=== PATIENT | female | born 1945 | race Caucasian/White ===

== ENCOUNTER 2022-06-26 08:06 | Inpatient (IN) | payer MEDICARE, SELFPAY ==
[2022-06-26] VITALS (7 sets, daily range): BP systolic 143–164; BP diastolic 64–72; PULSE 62–76; RESP 16–21; TEMP 36–36.5; O2SAT 95–100; BMI 25.0
--- NOTE | 2022-06-26 | ECHO_ITS ---
Patient Info Name: Ashlee Burk Age: 76 years : 1945 Gender: Female Ht: 67 in Wt: 160 lbs BSA: 1.86 m2 HR: 76 bpm BP: 143 / 72 mmHg Heart Rhythm: Sinus Rhythm Technical Quality: Fair Exam Date: 06/26/2022 3:36 PM Exam Location: [facility] Patient Status: Inpatient Admit Date: 06/26/2022 Staff Ordering Physician: Willis Segovia MD Job Printer Apprentice: Mony Bertrand RDCS Attending Provider: Jane Villar DO Exam Type: CA echo doppler color flow Study Info Indications - MULTIFOCAL CVA Complete two-dimensional, color flow and Doppler transthoracic echocardiogram is performed. Summary 1. Complete two-dimensional, color flow and Doppler transthoracic echocardiogram is performed. 2. Left ventricular chamber dimension is normal. 3. Left ventricular systolic function is normal, estimated at 65-70%. 4. There is moderate asymmetric septal increased left ventricular wall thickness. 5. The left ventricular diastolic function is grade I diastolic dysfunction. 6. There is trace mitral valve regurgitation. 7. There is no aortic valve stenosis. 8. There is mild tricuspid valve regurgitation. 9. No pulmonary hypertension, estimated pulmonary arterial systolic pressure is 26 mmHg. 10. Consider bubble study to assess for intracardiac shunt at the atrial level with and without Valsalva.]. Recommendations * Consider bubble study to assess for intracardiac shunt at the atrial level with and without Valsalva.]. Left Ventricle Left ventricular chamber dimension is normal. Left ventricular systolic function is normal, estimated at 65-70%. There is moderate asymmetric septal increased left ventricular wall thickness. The left ventricular diastolic function is grade I diastolic dysfunction. Right Ventricle Right ventricular chamber dimension is normal. Right ventricular systolic function is normal. Left Atria Left atrial chamber dimension is mildly enlarged. Right Atria Right atrial chamber dimension is normal. Aortic Valve The aortic valve is trileaflet. There is no aortic valve stenosis. There is trace aortic valve regurgitation. Pulmonic Valve The pulmonic valve is not well visualized. There is trace pulmonic regurgitation. Mitral Valve The mitral valve has thickened leaflets. There is trace mitral valve regurgitation. The mitral valve annulus is severely calcified. Tricuspid Valve The tricuspid valve leaflets are normal. There is mild tricuspid valve regurgitation. No pulmonary hypertension, estimated pulmonary arterial systolic pressure is 26 mmHg. Pericardium/Pleural The pericardium appears normal. There is trivial pericardial effusion. Inferior Vena Cava Normal inferior vena cava with >50% collapse upon inspiration consistent with normal right atrial pressure, 5 mmHg. Aorta The aortic root size at the sinus of Valsalva is normal. The prox ascending aorta size is normal. There is mild aortic atherosclerosis. Left Ventricular Outflow Tract Name Value Normal LVOT 2D LVOT Diameter 1.9 cm LVOT Doppler LVOT Peak Gradient 5 mmHg
--- NOTE | ~2022-06-26 | CT_ITS ---
EXAMINATION: CT brain wo/w con DATE: 06/29/2022 12:30 INDICATION: Right frontal and parietal lobe infarcts. Weakness. TECHNIQUE: Computed tomography (CT) of the head was performed without and with 100 mL Omnipaque 350 i ntravenous contrast. The mA was adjusted according to patient size. Iterative reconstruction techniqu e was employed. The dose-length product was 1210.67 mGy-cm. COMPARISON: Brain MRI 06/26/2022 FINDINGS: There are low-attenuation infarcts in right frontal and parietal lobes. There is no intracr anial hemorrhage or abnormal mass lesion. The ventricles are normal in size. There is mild mucosal th ickening in the ethmoid sinuses. There are likely changes of ocular lens replacement surgeries. There is a small right mastoid effusion. IMPRESSION: 1. Acute infarcts in right frontal and parietal lobes without change in distribution. Reviewed, dictated and finalized at location A. IMPRESSION: 1. Acute infarcts in right frontal and parietal lobes without change in distrib ution.
--- NOTE | ~2022-06-26 | MR_ITS ---
EXAMINATION: MR brain/brain stem wo/w con DATE: 06/26/2022 13:53 INDICATION: possible seizures TECHNIQUE: Magnetic resonance imaging (MRI) of the brain and brainstem was performed without and with 14 mL MultiHance intravenous contrast. Sequences included sagittal and axial T1-weighted SE, axial d iffusion-weighted FS EPI ASSET, axial T2*-weighted GRE, axial T2-weighted FLAIR Propeller, and axial T2-weighted Propeller. Postcontrast axial and coronal T1-weighted SE was obtained. Apparent diffusion coefficient (ADC) maps were created. COMPARISON: None. FINDINGS: Degenerative change and pannus at the atlantoaxial joint. Gyriform areas of T2/FLAIR hyperintensity s uperior posterior right frontal lobe and posterior right parietal lobe, with corresponding areas of d iffusion restriction. No MRI evidence of hemorrhage or extra-axial collection. No suspicious foci of susceptibility to suggest prior intraparenchymal hemorrhage. Minimal scattered chronic white matter c hange. No evidence of advanced or lobar predominant parenchymal volume loss. No herniation. Ventricle s are normal in size and morphology. Basal cisterns patent. Flow voids are preserved. Bilateral lens replacements. Right mastoid effusion. Minimal mucosal thickening in the ethmoid air cells. IMPRESSION: 1. Multifocal acute infarct in the right middle cerebral artery territory. 2. Right mastoid effusion. Results reported telephonically to Dr. Segovia by Dr. Otto at 2:15 PM on 06/26/2022. Reviewed, dictated and finalized at location K. IMPRESSION: 1. Multifocal acute infarct in the right middle cerebral artery territory. 2. Right mastoid effusion. Results reported telephonically to Dr. Segovia by Dr. Otto at 2:15 PM on 2021.
--- NOTE | ~2022-06-26 | US_ITS ---
EXAMINATION: US carotid duplex BI DATE: 06/26/2022 17:25 INDICATION: Multifocal stroke. Cerebral atherosclerosis. TECHNIQUE: Grayscale, color Doppler, and pulsed Doppler images of the cervical carotid arteries were obtained. The degree of vessel stenosis is placed in one of the following categories: normal, <50%, 5 0-69%, >=70% but less than near-occlusion, near-occlusion, or total occlusion. Note that percent sten osis relative to normal distal artery lumen diameter is indirectly measured from velocity measurement s as described by Timothy, et al. Radiology 2003; 229:340-346. COMPARISON: None. FINDINGS: RIGHT: The right common carotid artery (CCA) peak systolic velocity (PSV) is 102 cm/s. The right internal ca rotid artery (ICA) PSV is 96 cm/s. The right ICA end-diastolic velocity (EDV) is 28 cm/s. The right I CA/CCA PSV ratio is 0.9. Grayscale and color Doppler images yield an estimate of <50% diameter reduct ion from plaque in the ICA. The external carotid artery (ECA) PSV is 64 cm/s. There is antegrade flow in the right vertebral artery. LEFT: The left CCA PSV is 70 cm/s. The left ICA PSV is 62 cm/s. The left ICA EDV is 13 cm/s. The left ICA/C CA PSV ratio is 0.9. Grayscale and color Doppler images yield an estimate of <50% diameter reduction from plaque in the ICA. The ECA PSV is 63 cm/s. There is antegrade flow in the left vertebral artery. IMPRESSION: 1. <50% stenosis in the right internal carotid artery. 2. <50% stenosis in the left internal carotid artery. Reviewed, dictated and finalized at location A.
--- NOTE | 2022-06-26 08:27 | ADMGEN ---
This patient, Ashlee Burk, was admitted to Medical Room 255-. Patient/family oriented to hospital policies and general routines including ID bracelet, bed and alarms, visiting hours, pain management, procedures, bathroom and other care routines, personal items, smoking policy, room service/diet, and visiting hours. Information on how to activate the Rapid Response Team has been discussed. Patient/Family are encouraged to report perceived risks to care and to ask questions if they do not understand what they are told or what they should do.
[2022-06-26 08:52] LABS: Glucose Point of Care 259 mg/dl (65-105)
[2022-06-26 09:26] LABS: Hematocrit 39.2 % (37.0-47.0); Hemoglobin 12.8 g/dL (12.0-15.0); Immature Platelet Fraction Pct 4.5 % (0.9-11.2); Mean Corpuscular HGB Conc 32.7 g/dl (32-36); Mean Corpuscular Hemoglobin 28.3 pg (26-34); Mean Corpuscular Volume 86.5 fl (80-100); Mean Platelet Volume 10.9 fl (7.4-10.4); Platelet Count Result 139 k/mm3 (150-375); Red Blood Count 4.53 M/mm3 (4.2-5.4); Red Cell Distribution Width 12.7 % (11.5-14.5); White Blood Count 4.6 K/mm3 (4.5-10.0)
[2022-06-26 09:42] LABS: Alanine Aminotransferase 15 U/L (6-35); Albumin Level 3.9 g/dL (3.5-5.1); Alkaline Phosphatase 73 U/L (38-126); Anion Gap 6 mmol/L (8-16); Aspartate Amino Transferase 20 U/L (14-36); Bilirubin,Total 0.6 mg/dL (0.2-1.3); Blood Urea Nitrogen 21 mg/dL (7-17); Calcium 9.3 mg/dL (8.4-10.2); Carbon Dioxide 30 mmol/L (22-30); Chloride 102 mmol/L (98-107); Estimated CRCL calculation 68 ml/min; Estimated Glomerular Filt Rate > 60; Glucose 275 mg/dL (65-110); Potassium 3.8 mmol/L (3.4-5.0); Sodium 138 mmol/L (137-145)
--- NOTE | 2022-06-26 09:44 | PC.NURSE ---
Dr. Degroot called back at 0944 and will see the pt when he is done in the office.
[2022-06-26 12:35] LABS: Glucose Point of Care 232 mg/dl (65-105)
[2022-06-26] MEDS: INSULIN ASPART (*BKC) 100 UNITS/ML SUB-Q (12:54)
[2022-06-26] MEDS: INSULIN ASPART (*BKC) 100 UNITS/ML 12 UNITS SUB-Q (12:54)
--- NOTE | 2022-06-26 14:43 | ECG_ITS ---
Measurements Intervals [place] Rate: 64 P: 56 UT: 169 QRS: -61 QRSD: 129 T: 1 QT: 415 QTc: 428 Interpretive Statements SINUS RHYTHM RIGHT BUNDLE BRANCH BLOCK LEFT ANTERIOR FASCICULAR BLOCK VOLTAGE CRITERIA FOR LVH POSSIBLE ANTERIOR MYOCARDIAL INFARCTION , OF INDETERMINATE AGE ABNORMAL ECG NO PREVIOUS ECG AVAILABLE FOR COMPARISON Electronically Signed On 06-26-2022 18:28:51 CDT by Luis Eduardo Carter M.D.
--- NOTE | 2022-06-26 14:52 | PM.IMHP ---
H&P: HPI History of Present Illness Date/Time: 06/26/22 14:52 Chief Complaint: seizures like activity Narrative: patient is 77-year-old female resident of [facility] patient was found on the floor and there was a concern the patient had a seizure and was sent to the local emergency depart since there are no neurologist patient was transferred to the [facility], unfortunately patient is a very poor historian unable to provide detailed review of system or the history, with history is recorded from emergency room record, with suspicions of seizure to further evaluate patient had a MRI of the brain which showed multifocal infarct and middle cerebral artery territory, discussed with Neurologist patient currently on aspirin 81 mg q.day will add Plavix 75 mg q.day, patient is currently pravastatin 40 mg q.day will increase it to 80 mg q.day, to further evaluate will do 12 lead EKG rule out atrial fibrillation, cardiac echo and carotid ultrasound, also will do EEG as there was concern of seizures activities when she was found by the [place] staff, will have a PT OT evaluate the and further recommendation to follow. Review of Systems Review of Systems: patient is quite somnolent unable to provide detailed review of symptom PMFSH Family History Family History (Updated 06/26/22 @ 08:36 by Doreen Kimbrough RN) Mother Heart failure Social History Social History Smoking packs per day: 2 Smoking cigarettes per day: 40.0 Years smoked: 3 Smoking pack-years: 6.00 Smoking status: Former smoker Tobacco type: cigarettes Alcohol intake: never Substance use: never Spiritual care concerns: No Meds Home Medications and Allergies Home Medications Medication Instructions Recorded Confirmed Type amlodipine 5 mg tablet 5 mg PO DAILY 06/26/22 06/26/22 History aspirin 81 mg chewable tablet 81 mg PO DAILY 06/26/22 06/26/22 History insulin glargine 100 unit/mL 14 unit subcut HS 06/26/22 06/26/22 History subcutaneous solution insulin lispro 100 unit/mL 12 unit subcut TID 06/26/22 06/26/22 History subcutaneous solution (Humalog U-100 Insulin) latanoprost 0.005 % eye drops 1 drp EACH EYE HS 06/26/22 06/26/22 History metformin 500 mg tablet 500 mg PO BID 06/26/22 06/26/22 History omega 1-wfh-xhh-fish oil 1,000 mg 1 cap PO DAILY 06/26/22 06/26/22 History (120 mg-180 mg) capsule (Fish Oil) pravastatin 40 mg tablet 40 mg PO HS 06/26/22 06/26/22 History tramadol 50 mg tablet 50 mg PO Q6H PRN Pain 06/26/22 06/26/22 History venlafaxine 150 mg 150 mg PO DAILY 06/26/22 06/26/22 History capsule,extended release 24 hr (Effexor XR) Allergies Allergy/AdvReac Type Severity Reaction Status Date / Time Penicillins Allergy Unknown Verified 06/26/22 08:51 Vital Signs Vital Signs - 24 hr 06/26/22 08:30 06/26/22 11:36 Temperature 97.4 F L Pulse Rate 76 Respiratory Rate 16 Blood Pressure 143/72 H Pulse Oximetry 95 100 Oxygen Delivery Nasal Cannula Oxygen Flow Rate 2 Exam Narrative: Patient is comfortable, NAD HEENT: eyes are clear and none icteric, laceration on right side of forehead wound dressing. LUNGS: normal respiratory effort HEART: RR S1S2 ABD: BS+, Soft and nontender Lower extremities: no edema SKIN: nonjaundiced Neuro: grossly intact. H&P: Results Labs Labs: Short CBC 06/26/22 Range/Units 09:03 WBC 4.6 (4.5-10.0) K/mm3 Hgb 12.8 (12.0-15.0) g/dL Hct 39.2 (37.0-47.0) % Plt Count 139 L (150-375) k/mm3 BMP 06/26/22 09:03 Sodium 138 Potassium 3.8 Chloride 102 Carbon Dioxide 30 BUN 21 H Creatinine 0.60 L Glucose 275 H Calcium 9.3 Liver Function 06/26/22 Range/Units 09:03 Total Bilirubin 0.6 (0.2-1.3) mg/dL AST 20 (14-36) U/L ALT 15 (6-35) U/L Alkaline Phosphatase 73 (38-126) U/L Albumin 3.9 (3.5-5.1) g/dL Assessment and Plan Assessment and plan (1) CVA (cerebral vascular accident):
[2022-06-26 15:53] LABS: Troponin I < 0.012 ng/mL (0.000-0.034)
[2022-06-26] MEDS: CLOPIDOGREL BISULFATE 75 MG TABLET PO (16:39)
[2022-06-26 17:42] LABS: Glucose Point of Care 106 mg/dl (65-105)
--- NOTE | 2022-06-26 17:45 | PC.NURSE ---
Rapid response called on this patient for seizure activity. Patient seizing for total one minute. Dr Segovia ordered for patient to be given 2 mg IV ativan. Ativan not on unit, Doreen, charge nurse, called pharmacy to get ativan brought up. Will give as soon as received. Vitals and accucheck charted.
[2022-06-26] MEDS: LORazepam INJ (*CRX) 2 MG/ML VIAL IV PUSH (17:50)
[2022-06-26] MEDS: metFORMIN HCL 500 MG TABLET PO (17:51)
[2022-06-26] MEDS: levETIRAcetam 500MG/NACL 100ML 500 MG/100 ML BAG 400 MG IVPB (17:54)
--- NOTE | 2022-06-26 18:51 | PC.NURSE ---
Director Of Pharmacy reviewed Ely Bran RNLP charting and agreed.
[2022-06-26 18:53] LABS: Troponin I < 0.012 ng/mL (0.000-0.034)
[2022-06-26] MEDS: LATANOPROST 0.005% OP SOLN 2.5 ML BTL 1 DROP EACH EYE (21:57)
[2022-06-26] MEDS: PRAVASTATIN SODIUM 20 MG TABLET 40 MG PO (21:57)
[2022-06-26 22:03] LABS: Glucose Point of Care 100 mg/dl (65-105)
[2022-06-26 22:07] LABS: Troponin I < 0.012 ng/mL (0.000-0.034)
[2022-06-26] MEDS: INSULIN GLARGINE (*BKC) 100 UNITS/ML 7 UNITS SUB-Q (22:13)
[2022-06-27] VITALS (8 sets, daily range): BP systolic 137–163; BP diastolic 66–78; PULSE 60–102; RESP 12–20; TEMP 36.4–36.9; O2SAT 98–100
[2022-06-27 05:56] LABS: Hematocrit 39.3 % (37.0-47.0); Hemoglobin 13.1 g/dL (12.0-15.0); Mean Corpuscular HGB Conc 33.3 g/dl (32-36); Mean Corpuscular Hemoglobin 28.4 pg (26-34); Mean Corpuscular Volume 85.2 fl (80-100); Platelet Count Result 145 k/mm3 (150-375); Red Blood Count 4.61 M/mm3 (4.2-5.4); Red Cell Distribution Width 12.4 % (11.5-14.5); White Blood Count 4.7 K/mm3 (4.5-10.0)
[2022-06-27] MEDS: levETIRAcetam 500MG/NACL 100ML 500 MG/100 ML BAG 400 MG IVPB (06:05)
[2022-06-27 06:09] LABS: Potassium 3.7 mmol/L (3.4-5.0)
[2022-06-27 06:20] LABS: LDL Cholesterol Direct 101 mg/dL
[2022-06-27 06:27] LABS: Alanine Aminotransferase 13 U/L (6-35); Albumin Level 3.7 g/dL (3.5-5.1); Alkaline Phosphatase 72 U/L (38-126); Anion Gap 7 mmol/L (8-16); Aspartate Amino Transferase 19 U/L (14-36); Bilirubin,Total 0.5 mg/dL (0.2-1.3); Blood Urea Nitrogen 19 mg/dL (7-17); Calcium 9.5 mg/dL (8.4-10.2); Carbon Dioxide 30 mmol/L (22-30); Chloride 101 mmol/L (98-107); Cholesterol 211 mg/dL (0-200); Estimated CRCL calculation 80 ml/min; Estimated Glomerular Filt Rate > 60; Glucose 256 mg/dL (65-110); HDL Direct 44 mg/dL; Sodium 138 mmol/L (137-145); Triglycerides 249 mg/dL (<150)
[2022-06-27 08:36] LABS: Glucose Point of Care 228 mg/dl (65-105)
[2022-06-27] MEDS: INSULIN ASPART (*BKC) 100 UNITS/ML 12 UNITS SUB-Q ×2 (08:52→17:20)
[2022-06-27] MEDS: INSULIN ASPART (*BKC) 100 UNITS/ML SUB-Q (08:52)
[2022-06-27] MEDS: metFORMIN HCL 500 MG TABLET PO ×2 (08:55→17:17)
[2022-06-27] MEDS: CLOPIDOGREL BISULFATE 75 MG TABLET PO (08:55)
[2022-06-27] MEDS: amLODIPine BESYLATE 5 MG TABLET PO (08:55)
[2022-06-27] MEDS: OMEGA 3 POLYUNSAT FATTY ACIDS 1 GM CAP PO (08:56)
[2022-06-27] MEDS: VENLAFAXINE HCL XR 75 MG CAP.ER.24H 150 MG PO (08:56)
[2022-06-27] MEDS: ENOXAPARIN 40 MG/0.4 ML SYRINGE SUB-Q (08:57)
[2022-06-27] MEDS: ASPIRIN 81 MG CHEWABLE TABLET PO (08:57)
--- NOTE | 2022-06-27 11:25 | PM.IMPN ---
Progress Note: A&P Assessment and Plan (1) CVA (cerebral vascular accident): Code(s): I63.9 - Cerebral infarction, unspecified Status: Acute Assessment and Plan: patient is 77-year-old female resident of [facility] patient was found on the floor and there was a concern the patient had a seizure and was sent to the local emergency depart since there are no neurologist patient was transferred to the [facility], unfortunately patient is a very poor historian unable to provide detailed review of system or the history, with history is recorded from emergency room record, with suspicions of seizure to further evaluate patient had a MRI of the brain which showed multifocal infarct and middle cerebral artery territory, discussed with Neurologist patient currently on aspirin 81 mg q.day will add Plavix 75 mg q.day, patient is currently pravastatin 40 mg q.day will increase it to 80 mg q.day, to further evaluate will do 12 lead EKG rule out atrial fibrillation, cardiac echo and carotid ultrasound, also will do EEG as there was concern of seizures activities when she was found by the [place] staff, will have a PT OT evaluate the and further recommendation to follow. 06/27/2022 interval history: 76-year-old female presented with a seizure is found to have multiple acute infarcts and middle cerebral artery territory patient started on aspirin and Plavix, patient LDL is 101 currently taking pravastatin 40 mg at the bed will increased 80 mg bedtime, on 06/26 late afternoon patient had another seizure patient was given 2 mg Ativan IV and started the patient on Keppra 500 mg b.i.d. IV, this morning patient is more awake interactive, will have a PT OT evaluate the will continue to monitor patient be seen by Neurology and further recommendation to follow. (2) Seizure: Code(s): R56.9 - Unspecified convulsions Status: Acute Assessment and Plan: there was a concern had seizure to further evaluate will do EEG and patient seen by neurologist further recommendation to follow (3) Diabetes: Code(s): E11.9 - Type 2 diabetes mellitus without complications Status: Acute Assessment and Plan: will continue home regimen and monitor with sliding scale I have reduced Lantus to 7 units at the bedtime compared to 14 units patient is taking at home to prevent any hypoglycemia Subjective Date/time seen: 06/27/22 11:25 patient is 77-year-old female resident of [facility] patient was found on the floor and there was a concern the patient had a seizure and was sent to the local emergency depart since there are no neurologist patient was transferred to the [facility], unfortunately patient is a very poor historian unable to provide detailed review of system or the history, with history is recorded from emergency room record, with suspicions of seizure to further evaluate patient had a MRI of the brain which showed multifocal infarct and middle cerebral artery territory, discussed with Neurologist patient currently on aspirin 81 mg q.day will add Plavix 75 mg q.day, patient is currently pravastatin 40 mg q.day will increase it to 80 mg q.day, to further evaluate will do 12 lead EKG rule out atrial fibrillation, cardiac echo and carotid ultrasound, also will do EEG as there was concern of seizures activities when she was found by the [place] staff, will have a PT OT evaluate the and further recommendation to follow. 06/27/2022 interval history: 76-year-old female presented with a seizure is found to have multiple acute infarcts and middle cerebral artery territory patient started on aspirin and Plavix, patient LDL is 101 currently taking pravastatin 40 mg at the bed will increased 80 mg bedtime, on 06/26 late afternoon patient had another seizure patient was given 2 mg Ativan IV and started the patient on Keppra 500 mg b.i.d. IV, this morning patient is more awake interactive, will have a PT OT evaluate the will continue to monitor pat
--- NOTE | 2022-06-27 12:04 | WPDNEURCNPN ---
Assessment and Plan Assessment and plan (1) Diabetes: Code(s): E11.9 - Type 2 diabetes mellitus without complications Status: Acute (2) Seizure: Code(s): R56.9 - Unspecified convulsions Status: Acute (3) CVA (cerebral vascular accident): Code(s): I63.9 - Cerebral infarction, unspecified Status: Acute Plan 77 years old intermediate resident with the initial suspicion about the possibility of seizure as she was found on the floor examination is consistent with left-sided neurological deficit with abnormal MRI revealing multifocal acute infarct in the right middle cerebral artery suggestive of stroke and possibility of seizure patient is receiving aspirin aspirin 81 mg daily will be added Plavix 75 mg daily and Keppra 500 mg twice a day with seizure precautions and physical therapy and occupation therapy Consult date: 06/27/22 Time Seen: 11:00 Reason for consult: seizure-like activity HPI: Ashlee Burk is a 76 year old female admitted to the hospital for the complaints of seizure-like activity. Patient is a intermediate resident was found on the floor and there was a concern the patient has had a seizure that is why she was sent to the local emergency room and as there was no neurologist call she was transferred to the [facility]. Patient was reportedly poor historian was unable to give any account of the incident MRI of the brain had already been done which documented multifocal infarct in the distribution of the middle cerebral artery patient had been taking aspirin 81 mg daily Plavix 75 mg daily was added in addition to the continuation of pravastatin 40 mg daily which was increased to80mg daily . Patient has ongoing history of smoking cigarettes per day for 40 2 packs per day and years smoked 3 with smoking pack years of 6 but she is a former smoker and not alcohol drinker, her medications included amlodipine 5 mg daily aspirin 81 mg daily metformin 500 mg twice a day pravastatin 40 mg at night tramadol 50 mg q.6 hours p.r.n. and venlafaxine 150 mg daily in addition to insulin, on initial evaluation her vital signs were stable with pulse ox 95 CBC revealed no leukocytosis hemoglobin is 12.8 basic metabolic panel was normal with BUN 21 but glucose 275 hepatic enzymes were normal. Review of Systems Review of Systems: All systems reviewed & are unremarkable except as noted in HPI and below [facility] Family History Family History (Updated 06/26/22 @ 08:36 by Doreen Kimbrough RN) Mother Heart failure Social History Social History Smoking packs per day: 2 Smoking cigarettes per day: 40.0 Years smoked: 3 Smoking pack-years: 6.00 Smoking status: Former smoker Tobacco type: cigarettes Alcohol intake: never Substance use: never Spiritual care concerns: No Meds Home Medications and Allergies Home Medications Medication Instructions Recorded Confirmed Type amlodipine 5 mg tablet 5 mg PO DAILY 06/26/22 06/26/22 History aspirin 81 mg chewable tablet 81 mg PO DAILY 06/26/22 06/26/22 History insulin glargine 100 unit/mL 14 unit subcut HS 06/26/22 06/26/22 History subcutaneous solution insulin lispro 100 unit/mL 12 unit subcut TID 06/26/22 06/26/22 History subcutaneous solution (Humalog U-100 Insulin) latanoprost 0.005 % eye drops 1 drp EACH EYE HS 06/26/22 06/26/22 History metformin 500 mg tablet 500 mg PO BID 06/26/22 06/26/22 History omega 3-dza-fwb-fish oil 1,000 mg 1 cap PO DAILY 06/26/22 06/26/22 History (120 mg-180 mg) capsule (Fish Oil) pravastatin 40 mg tablet 40 mg PO HS 06/26/22 06/26/22 History tramadol 50 mg tablet 50 mg PO Q6H PRN Pain 06/26/22 06/26/22 History venlafaxine 150 mg 150 mg PO DAILY 06/26/22 06/26/22 History capsule,extended release 24 hr (Effexor XR) Allergies Allergy/AdvReac Type Severity Reaction Status Date / Time Penicillins Allergy Unknown Verified 06/26/22 08:51 Vital Signs Vital Signs - 24 hr
[2022-06-27 12:08] LABS: Glucose Point of Care 139 mg/dl (65-105)
[2022-06-27 12:45] LABS: Glucose Point of Care 78 mg/dl (65-105)
[2022-06-27] MEDS: diazePAM INJ (*CRX) 10 MG/2 ML SYRINGE 2.5 MG IV PUSH (13:14)
--- NOTE | 2022-06-27 14:03 | PCPTNOTE ---
Attempted PT evaluation, pt currently having seizure like activity per RN. Will follow
[2022-06-27] MEDS: LORazepam INJ (*CRX) 2 MG/ML VIAL 0.5 MG IM (14:13)
[2022-06-27] MEDS: LORazepam INJ (*CRX) 2 MG/ML VIAL IV PUSH (14:33)
[2022-06-27 14:42] LABS: Glucose Point of Care 98 mg/dl (65-105)
--- NOTE | 2022-06-27 15:26 | PC.NURSE ---
Called and spoke with patients' niece at 1515 about the seizure like activity the patient had and gave an update of the patients' current condition.
--- NOTE | 2022-06-27 16:28 | PC.NURSE ---
At 13:15 the pt had an unwitnessed start of seizure like activity. VS: 95% on RA, 147/98, 98.6, blood sugar 98mg/dl. Gave ordered PRN Valium. Seizure activity improved but still continued and Called Dr. Segovia for further orders. New orders recieved. IV site infiltrated. Ativan 0.5mg IM given. Unsucussful attempt of replacement IV. Called vascular access department who place new IV. Kepra and additional ativan given per IV. Seizure activity stopped. Family was notified.
[2022-06-27 17:11] LABS: Glucose Point of Care 161 mg/dl (65-105)
--- NOTE | 2022-06-27 18:42 | PC.NURSE ---
Dr. Segovia ordered 250mg Kepra to be given IVPB during seizure like activity. After IV restarted second dose of 250mg Kepra IVPB was ordered with a total of 500 mgs IVPB was given to pt.
[2022-06-27] MEDS: LORazepam INJ (*CRX) 2 MG/ML VIAL 3 MG IV PUSH (18:46)
[2022-06-27] MEDS: PRAVASTATIN SODIUM 20 MG TABLET 40 MG PO (20:49)
[2022-06-27] MEDS: levETIRAcetam 1000MG/NACL100ML 1,000 MG/100 ML BAG 390.88 MG IVPB (20:50)
[2022-06-27] MEDS: LATANOPROST 0.005% OP SOLN 2.5 ML BTL 1 DROP EACH EYE (20:50)
[2022-06-27 21:12] LABS: Glucose Point of Care 78 mg/dl (65-105)
[2022-06-27] MEDS: INSULIN GLARGINE (*BKC) 100 UNITS/ML 7 UNITS SUB-Q (23:03)
[2022-06-28] VITALS (10 sets, daily range): BP systolic 122–156; BP diastolic 53–79; PULSE 66–82; RESP 12–16; TEMP 36.1–37; O2SAT 96–100
[2022-06-28 01:37] LABS: Glucose Point of Care 123 mg/dl (65-105)
[2022-06-28 05:46] LABS: Hematocrit 38.7 % (37.0-47.0); Hemoglobin 13.2 g/dL (12.0-15.0); Mean Corpuscular HGB Conc 34.1 g/dl (32-36); Mean Corpuscular Hemoglobin 28.4 pg (26-34); Mean Corpuscular Volume 83.4 fl (80-100); Mean Platelet Volume 10.8 fl (7.4-10.4); Platelet Count Result 150 k/mm3 (150-375); Red Blood Count 4.64 M/mm3 (4.2-5.4); Red Cell Distribution Width 12.6 % (11.5-14.5); White Blood Count 4.6 K/mm3 (4.5-10.0)
[2022-06-28 06:17] LABS: Alanine Aminotransferase 13 U/L (6-35); Albumin Level 3.6 g/dL (3.5-5.1); Alkaline Phosphatase 70 U/L (38-126); Anion Gap 6 mmol/L (8-16); Aspartate Amino Transferase 24 U/L (14-36); Bilirubin,Total 0.6 mg/dL (0.2-1.3); Blood Urea Nitrogen 19 mg/dL (7-17); Calcium 9.9 mg/dL (8.4-10.2); Carbon Dioxide 31 mmol/L (22-30); Chloride 98 mmol/L (98-107); Estimated CRCL calculation 68 ml/min; Estimated Glomerular Filt Rate > 60; Glucose 202 mg/dL (65-110); Potassium 3.5 mmol/L (3.4-5.0); Sodium 135 mmol/L (137-145)
[2022-06-28 08:52] LABS: Glucose Point of Care 206 mg/dl (65-105)
[2022-06-28] MEDS: ENOXAPARIN 40 MG/0.4 ML SYRINGE SUB-Q (08:57)
[2022-06-28] MEDS: VENLAFAXINE HCL XR 75 MG CAP.ER.24H 150 MG PO (08:58)
[2022-06-28] MEDS: POTASSIUM CHLORIDE 20 MEQ TABLET 40 MEQ PO (08:58)
[2022-06-28] MEDS: CLOPIDOGREL BISULFATE 75 MG TABLET PO (08:59)
[2022-06-28] MEDS: amLODIPine BESYLATE 5 MG TABLET PO (08:59)
[2022-06-28] MEDS: OMEGA 3 POLYUNSAT FATTY ACIDS 1 GM CAP PO (08:59)
[2022-06-28] MEDS: metFORMIN HCL 500 MG TABLET PO ×2 (08:59→17:15)
[2022-06-28] MEDS: ASPIRIN 81 MG CHEWABLE TABLET PO (09:00)
[2022-06-28] MEDS: levETIRAcetam 1000MG/NACL100ML 1,000 MG/100 ML BAG 390 MG IVPB (09:00)
[2022-06-28] MEDS: INSULIN ASPART (*BKC) 100 UNITS/ML 12 UNITS SUB-Q ×3 (09:01→17:13)
[2022-06-28] MEDS: INSULIN ASPART (*BKC) 100 UNITS/ML SUB-Q (09:02)
--- NOTE | 2022-06-28 09:52 | WPDNEUROLOGY ---
Neurology EEG Report General Information Date of Study: 06/27/22 TEST eeg DIAGNOSIS possible seizures CONDITION OF RECORDING awake and drowsy EEG NUMBER [id number] CLINICAL HISTORY patient unable to give any history EEG DESCRIPTION background rhythm consists of low voltage poorly organized 8 to 10 hertz per 2nd alpha posteriorly admixed with low-voltage 15 to 18 hertz per 2nd beta bilateral symmetrical sleep activity seen during sleep. Hyperventilation not done. Photic stimulation not done. Non paroxysmal. Nonfocal. Nonlateralizing. IMPRESSION Mildly abnormal record due to the absence of normal background rhythm but there is no evidence of any paroxysmal activity throughout the tracing and also there is no evidence of any focal slow activity to consider the possibility of focal structural lesion clinical correlation recommended.
--- NOTE | 2022-06-28 11:18 | PM.IMPN ---
Progress Note: A&P Assessment and Plan (1) CVA (cerebral vascular accident): Code(s): I63.9 - Cerebral infarction, unspecified Status: Acute Assessment and Plan: patient is 77-year-old female resident of [facility] patient was found on the floor and there was a concern the patient had a seizure and was sent to the local emergency depart since there are no neurologist patient was transferred to the [facility], unfortunately patient is a very poor historian unable to provide detailed review of system or the history, with history is recorded from emergency room record, with suspicions of seizure to further evaluate patient had a MRI of the brain which showed multifocal infarct and middle cerebral artery territory, discussed with Neurologist patient currently on aspirin 81 mg q.day will add Plavix 75 mg q.day, patient is currently pravastatin 40 mg q.day will increase it to 80 mg q.day, to further evaluate will do 12 lead EKG rule out atrial fibrillation, cardiac echo and carotid ultrasound, also will do EEG as there was concern of seizures activities when she was found by the PA staff, will have a PT OT evaluate the and further recommendation to follow. 06/27/2022 interval history: 76-year-old female presented with a seizure is found to have multiple acute infarcts and middle cerebral artery territory patient started on aspirin and Plavix, patient LDL is 101 currently taking pravastatin 40 mg at the bed will increased 80 mg bedtime, on 06/26 late afternoon patient had another seizure patient was given 2 mg Ativan IV and started the patient on Keppra 500 mg b.i.d. IV, this morning patient is more awake interactive, will have a PT OT evaluate the will continue to monitor patient be seen by Neurology and further recommendation to follow. 06/28/2022 interval history: 76-year-old female presented with a seizure is found to have multiple acute infarcts and middle cerebral artery territory patient started on aspirin and Plavix, patient LDL is 101 currently taking pravastatin 40 mg at the bed will increased 80 mg bedtime, on 06/26 late afternoon patient had another seizure patient was given 2 mg Ativan IV and started the patient on Keppra 500 mg b.i.d. IV, on 06/27 morning patient is more awake interactive, however later in the afternoon patient had rhythmic tremors seizures like acitivties however during that time patient answered appropriated did not appear in postictal stats, patient was given Ativan 5mg and another 500mg of keppara, which did help stopped her tremors and patient was more awake, this morning patient again awake and answers appropriately working with PT, will have a PT OT evaluate the will continue to monitor patient will be seen by Neurology and further recommendation to follow. (2) Seizure: Code(s): R56.9 - Unspecified convulsions Status: Acute Assessment and Plan: there was a concern had seizure to further evaluate will do EEG and patient seen by neurologist further recommendation to follow (3) Diabetes: Code(s): E11.9 - Type 2 diabetes mellitus without complications Status: Acute Assessment and Plan: will continue home regimen and monitor with sliding scale I have reduced Lantus to 7 units at the bedtime compared to 14 units patient is taking at home to prevent any hypoglycemia Subjective Date/time seen: 06/28/22 11:18 06/28/2022 interval history: 76-year-old female presented with a seizure is found to have multiple acute infarcts and middle cerebral artery territory patient started on aspirin and Plavix, patient LDL is 101 currently taking pravastatin 40 mg at the bed will increased 80 mg bedtime, on 06/26 late afternoon patient had another seizure patient was given 2 mg Ativan IV and started the patient on Keppra 500 mg b.i.d. IV, on 06/27 morning patient is more awake interactive, however later in the afternoon patient had rhythmic tremors seizures like acitivties however ashish
[2022-06-28 12:16] LABS: Glucose Point of Care 166 mg/dl (65-105)
[2022-06-28 17:55] LABS: Glucose Point of Care 64 mg/dl (65-105)
[2022-06-28 18:27] LABS: Glucose Point of Care 57 mg/dl (65-105)
[2022-06-28 18:39] LABS: Glucose Point of Care 89 mg/dl (65-105)
[2022-06-28 19:57] LABS: Glucose Point of Care 168 mg/dl (65-105)
--- NOTE | 2022-06-28 20:37 | PC.NURSE ---
Dr Crabtree notified pt is exhibiting severe left sided weakness at this time that was not previously apparent due to patient condition r/t medication. PT worked with patient today and documented similar findings. Pt also exhibits difficulty accommodating and reading at this time. Order received for CT in the morning and speech therapy evaluation.
[2022-06-28] MEDS: LATANOPROST 0.005% OP SOLN 2.5 ML BTL 1 DROP EACH EYE (21:30)
[2022-06-28] MEDS: levETIRAcetam 1000MG/NACL100ML 1,000 MG/100 ML BAG 390.88 MG IVPB (21:33)
[2022-06-29] VITALS (10 sets, daily range): BP systolic 124–146; BP diastolic 63–71; PULSE 65–84; RESP 16–18; TEMP 36.2–36.4; O2SAT 94–99
[2022-06-29 04:58] LABS: Hemoglobin 12.9 g/dL (12.0-15.0); Mean Corpuscular HGB Conc 33.9 g/dl (32-36); Mean Corpuscular Hemoglobin 28.4 pg (26-34); Mean Corpuscular Volume 83.7 fl (80-100); Mean Platelet Volume 10.7 fl (7.4-10.4); Platelet Count Result 160 k/mm3 (150-375); Red Blood Count 4.54 M/mm3 (4.2-5.4); Red Cell Distribution Width 12.5 % (11.5-14.5); White Blood Count 5.1 K/mm3 (4.5-10.0)
[2022-06-29 05:26] LABS: Alanine Aminotransferase 12 U/L (6-35); Albumin Level 3.6 g/dL (3.5-5.1); Alkaline Phosphatase 74 U/L (38-126); Anion Gap 7 mmol/L (8-16); Aspartate Amino Transferase 23 U/L (14-36); Bilirubin,Total 0.6 mg/dL (0.2-1.3); Blood Urea Nitrogen 17 mg/dL (7-17); Calcium 9.6 mg/dL (8.4-10.2); Carbon Dioxide 27 mmol/L (22-30); Chloride 100 mmol/L (98-107); Estimated CRCL calculation 80 ml/min; Estimated Glomerular Filt Rate > 60; Glucose 181 mg/dL (65-110); Potassium 3.8 mmol/L (3.4-5.0); Sodium 134 mmol/L (137-145)
--- NOTE | 2022-06-29 08:15 | PM.IMPN ---
Progress Note: A&P Assessment and Plan (1) CVA (cerebral vascular accident): Code(s): I63.9 - Cerebral infarction, unspecified Status: Acute Assessment and Plan: MRI shows acute infarct of the middle cerebral artery Plavix added Aspirin and statin Echo EF 65-70% grade 1 diastolic dysfunction Neurology consulted thank you for your help Carotid doppler ultrasound <50% stenosis bilaterally tele monitor PT/OT (2) Seizure: Code(s): R56.9 - Unspecified convulsions Status: Acute Assessment and Plan: Noted yesterday with tremors, resolved with ativan EEG-Mildly abnormal record due to the absence of normal background rhythm but there is no evidence of any paroxysmal activity throughout the tracing and also there is no evidence of any focal slow activity to consider the possibility of focal structural lesion clinical correlation recommended Neurology consulted Keppra 1000mg Q12H Valium for break through seizures seizure precautions PT/OT Fall precautions (3) Diabetes: Code(s): E11.9 - Type 2 diabetes mellitus without complications Status: Acute Assessment and Plan: Current glucose 181 Continue home Lantus 12 units TID, Aspart 12 units TID, metformin 500mg PO BID ISS Accu cheks AC/HS Trend glucose Adjust therapy as indicated Hypoglycemia protocol (4) Involuntary movements: Code(s): R25.9 - Unspecified abnormal involuntary movements Status: Acute Assessment and Plan: Left facial twitching noted Prolactin level ordered to assess for seizure Could be secondary to stroke Valium ordered Neurology consulted Time Spent With Patient Time with patient: Greater than 35 minutes Subjective Date/time seen: 06/29/22814 Interval history: 06/29/22814 Was called this morning by the nurse who stated that she felt the patient was having another seizure. Patient was able to answer all questions and was alert oriented x3. She did have involuntary muscle movement and twitching to her left face. Prolactin level has been ordered. Patient denies any further complaints of chest pain, shortness of breath, nausea, vomiting, diarrhea, constipation, weakness or fatigue. She did state that she has been getting up however she does need help. She also has no signs of choking or dysphagia while drinking. Ask nursing to put out a call to Dr. Degroot for further advice. 06/28/2022 interval history:? 76-year-old female presented with a seizure is found to have multiple acute infarcts and middle cerebral artery territory patient started on aspirin and Plavix, patient LDL is 101 currently taking pravastatin 40 mg at the bed will increased 80 mg bedtime, on 06/26 late afternoon patient had another seizure patient was given 2 mg Ativan IV and started the patient on Keppra 500 mg b.i.d. IV, on 06/27? morning patient is more awake interactive, however later in the afternoon patient had rhythmic tremors seizures like activities however during that time patient answered appropriated did not appear in postictal stats, patient was given Ativan 5mg and another 500mg of Keppra, which did help stopped her tremors and patient was more awake, this morning patient again awake and answers appropriately working with PT, ? will have a PT OT evaluate the will continue to monitor patient will? be seen by Neurology and further recommendation to follow. 06/27/2022 interval history:? 76-year-old female presented with a seizure is found to have multiple acute infarcts and middle cerebral artery territory patient started on aspirin and Plavix, patient LDL is 101 currently taking pravastatin 40 mg at the bed will increased 80 mg bedtime, on 06/26 late afternoon patient had another seizure patient was given 2 mg Ativan IV and started the patient on Keppra 500 mg b.i.d. IV, this morning patient is more awake interactive, will have a PT OT evaluate the
[2022-06-29 08:35] LABS: Glucose Point of Care 231 mg/dl (65-105)
[2022-06-29] MEDS: levETIRAcetam 1000MG/NACL100ML 1,000 MG/100 ML BAG 390 MG IVPB ×2 (08:35→21:06)
[2022-06-29] MEDS: PRAVASTATIN SODIUM 20 MG TABLET 80 MG PO (08:36)
[2022-06-29] MEDS: CLOPIDOGREL BISULFATE 75 MG TABLET PO (08:36)
[2022-06-29] MEDS: ASPIRIN 81 MG CHEWABLE TABLET PO (08:37)
[2022-06-29] MEDS: OMEGA 3 POLYUNSAT FATTY ACIDS 1 GM CAP PO (08:37)
[2022-06-29] MEDS: VENLAFAXINE HCL XR 75 MG CAP.ER.24H 150 MG PO (08:37)
[2022-06-29] MEDS: ENOXAPARIN 40 MG/0.4 ML SYRINGE SUB-Q (08:38)
[2022-06-29] MEDS: metFORMIN HCL 500 MG TABLET PO ×2 (08:38→16:55)
[2022-06-29] MEDS: amLODIPine BESYLATE 5 MG TABLET PO (08:38)
--- NOTE | 2022-06-29 08:40 | PC.NURSE ---
Antwon Tsang notified of patient's potential seizure-like symptoms. At the bedside Sharan ruled out the possibility of seizure activity due to the patient's response and cognition. Likely stroke related twitching/spasms noted. Sharan requested orders for STAT prolactin lab draw. Pt's symptoms resolved shortly after the MOLD OPERATOR left the bedside.
[2022-06-29] MEDS: INSULIN ASPART (*BKC) 100 UNITS/ML SUB-Q ×3 (08:50→17:29)
[2022-06-29 12:45] LABS: Glucose Point of Care 261 mg/dl (65-105)
[2022-06-29] MEDS: ALPRAZolam (*CRX) 0.25 MG TABLET PO (14:46)
[2022-06-29 17:22] LABS: Glucose Point of Care 228 mg/dl (65-105)
[2022-06-29 20:20] LABS: Glucose Point of Care 255 mg/dl (65-105)
[2022-06-29] MEDS: LATANOPROST 0.005% OP SOLN 2.5 ML BTL 1 DROP EACH EYE (21:06)
[2022-06-29] MEDS: INSULIN GLARGINE (*BKC) 100 UNITS/ML 7 UNITS SUB-Q (21:06)
[2022-06-30] VITALS (9 sets, daily range): BP systolic 115–128; BP diastolic 58–74; PULSE 64–94; RESP 16–21; TEMP 36.3–36.7; O2SAT 98–100
[2022-06-30 06:02] LABS: Hematocrit 40.3 % (37.0-47.0); Hemoglobin 13.9 g/dL (12.0-15.0); Mean Corpuscular HGB Conc 34.5 g/dl (32-36); Mean Corpuscular Hemoglobin 28.4 pg (26-34); Mean Corpuscular Volume 82.4 fl (80-100); Mean Platelet Volume 11.1 fl (7.4-10.4); Platelet Count Result 167 k/mm3 (150-375); Red Blood Count 4.89 M/mm3 (4.2-5.4); Red Cell Distribution Width 12.3 % (11.5-14.5)
[2022-06-30 06:16] LABS: Alanine Aminotransferase 14 U/L (6-35); Alkaline Phosphatase 71 U/L (38-126); Anion Gap 9 mmol/L (8-16); Aspartate Amino Transferase 26 U/L (14-36); Bilirubin,Total 0.7 mg/dL (0.2-1.3); Blood Urea Nitrogen 24 mg/dL (7-17); Calcium 9.6 mg/dL (8.4-10.2); Carbon Dioxide 27 mmol/L (22-30); Chloride 99 mmol/L (98-107); Estimated CRCL calculation 68 ml/min; Estimated Glomerular Filt Rate > 60; Glucose 238 mg/dL (65-110); Potassium 3.7 mmol/L (3.4-5.0); Sodium 135 mmol/L (137-145)
[2022-06-30 08:47] LABS: Glucose Point of Care 248 mg/dl (65-105)
[2022-06-30 09:27] LABS: Glucose Point of Care 262 mg/dl (65-105)
--- NOTE | 2022-06-30 09:30 | PM.IMPN ---
Progress Note: A&P Assessment and Plan (1) CVA (cerebral vascular accident): Code(s): I63.9 - Cerebral infarction, unspecified Status: Acute Assessment and Plan: MRI shows acute infarct of the middle cerebral artery Plavix added Aspirin and statin Echo EF 65-70% grade 1 diastolic dysfunction Neurology consulted thank you for your help Carotid doppler ultrasound <50% stenosis bilaterally tele monitor PT/OT (2) Seizure: Code(s): R56.9 - Unspecified convulsions Status: Acute Assessment and Plan: Noted yesterday with tremors, resolved with ativan EEG-Mildly abnormal record due to the absence of normal background rhythm but there is no evidence of any paroxysmal activity throughout the tracing and also there is no evidence of any focal slow activity to consider the possibility of focal structural lesion clinical correlation recommended Neurology consulted Keppra 1000mg Q12H Valium for break through seizures seizure precautions PT/OT Fall precautions (3) Diabetes: Code(s): E11.9 - Type 2 diabetes mellitus without complications Status: Acute Assessment and Plan: Current glucose 181 Continue home Lantus 12 units TID, Aspart 12 units TID, metformin 500mg PO BID ISS Accu cheks AC/HS Trend glucose Adjust therapy as indicated Hypoglycemia protocol (4) Involuntary movements: Code(s): R25.9 - Unspecified abnormal involuntary movements Status: Acute Assessment and Plan: Left facial twitching noted Prolactin level ordered to assess for seizure Could be secondary to stroke Valium ordered. Added Xanax PRN for twitching Neurology consulted Time Spent With Patient Time with patient: Greater than 35 minutes Subjective Date/time seen: 06/30/22929 Interval history: 06/30/22929 Patient seems to be doing well today. She stated that the Xanax did help her involuntary movements. She denies any other issues like chest pain, shortness of breath, nausea, vomiting, diarrhea, constipation weakness or fatigue. She did state that she gets up with the nursing staff helps her. Was going to discharge patient today however the snf is unable to take her so she will go in the morning. 06/29/22 0815 ? Was called this morning by the nurse who stated that she felt the patient was having another seizure.? Patient was able to answer all questions and was alert oriented x3.? She did have involuntary muscle movement and twitching to her left face.? Prolactin level has been ordered.? Patient denies any further complaints of chest pain, shortness of breath, nausea, vomiting, diarrhea, constipation, weakness or fatigue.? She did state that she has been getting up however she does need help.? She also has no signs of choking or dysphagia while drinking.? Ask nursing to put out a call to Dr. Degroot for further advice. 06/28/2022 interval history:??76-year-old female presented with a seizure is found to have multiple acute infarcts and middle cerebral artery territory patient started on aspirin and Plavix, patient LDL is 101 currently taking pravastatin 40 mg at the bed will increased 80 mg bedtime, on 06/26 late afternoon patient had another seizure patient was given 2 mg Ativan IV and started the patient on Keppra 500 mg b.i.d. IV, on 06/27? morning patient is more awake interactive, however later in the afternoon patient had rhythmic tremors seizures like activities however during that time patient answered appropriated did not appear in postictal stats, patient was given Ativan 5mg and another 500mg of Keppra, which did help stopped her tremors and patient was more awake, this morning patient again awake and answers appropriately working with PT, ? will have a PT OT evaluate the will continue to monitor patient will? be seen by Neurology and further recommendation to follow. 06/27/2022 interval history:??76-year
--- NOTE | 2022-06-30 09:30 | P.PNIM_ITS ---
Progress Note: A&P Assessment and Plan (1) CVA (cerebral vascular accident): Code(s): I63.9 - Cerebral infarction, unspecified Status: Acute Assessment and Plan: * MRI shows acute infarct of the middle cerebral artery * Plavix added * Aspirin and statin * Echo EF 65-70% grade 1 diastolic dysfunction * Neurology consulted thank you for your help * Carotid doppler ultrasound <50% stenosis bilaterally * tele monitor * PT/OT (2) Seizure: Code(s): R56.9 - Unspecified convulsions Status: Acute Assessment and Plan: * Noted yesterday with tremors, resolved with ativan * EEG-Mildly abnormal record due to the absence of normal background rhythm but there is no evidence of any paroxysmal activity throughout the tracing and also there is no evidence of any focal slow activity to consider the possibility of focal structural lesion clinical correlation recommended * Neurology consulted * Keppra 1000mg Q12H * Valium for break through seizures * seizure precautions * PT/OT * Fall precautions (3) Diabetes: Code(s): E11.9 - Type 2 diabetes mellitus without complications Status: Acute Assessment and Plan: * Current glucose 181 * Continue home Lantus 12 units TID, Aspart 12 units TID, metformin 500mg PO BID * ISS * Accu cheks AC/HS * Trend glucose * Adjust therapy as indicated * Hypoglycemia protocol (4) Involuntary movements: Code(s): R25.9 - Unspecified abnormal involuntary movements Status: Acute Assessment and Plan: * Left facial twitching noted * Prolactin level ordered to assess for seizure * Could be secondary to stroke * Valium ordered. * Added Xanax PRN for twitching * Neurology consulted Time Spent With Patient Time with patient: Greater than 35 minutes Subjective Date/time seen: 06/30/22929 Interval history: 06/30/22929 Patient seems to be doing well today. She stated that the Xanax did help her involuntary movements. She denies any other issues like chest pain, shortness of breath, nausea, vomiting, diarrhea, constipation weakness or fatigue. She did state that she gets up with the nursing staff helps her. Was going to discharge patient today however the long-term is unable to take her so she will go in the morning. 06/29/22 08 ? Was called this morning by the nurse who stated that she felt the patient was having another seizure.? Patient was able to answer all questions and was alert oriented x3.? She did have involuntary muscle movement and twitching to her left face.? Prolactin level has been ordered.? Patient denies any further complaints of chest pain, shortness of breath, nausea, vomiting, diarrhea, constipation, weakness or fatigue.? She did state that she has been getting up however she does need help.? She also has no signs of choking or dysphagia while drinking.? Ask nursing to put out a call to Dr. Degroot for further advice. 06/28/2022 interval history:??76-year-old female presented with a seizure is found to have multiple acute infarcts and middle cerebral artery territory patient started on aspirin and Plavix, patient LDL is 101 currently taking pravastatin 40 mg at the bed will increased 80 mg bedtime, on 06/26 late afternoon patient had another seizure patient was given 2 mg Ativan IV and started the patient on Keppra 500 mg b.i.d. IV, on 06/27? morning patient is more awake interactive, however later in the afternoon patient had rhythmic tremors seizures like activities how
--- NOTE | 2022-06-30 09:30 | PM.DS ---
DS: Admitting Diagnosis Discharge Date 07/01/22929 Admitting Diagnosis CVA, seizures DS: Discharge Diagnosis Discharge Diagnosis (1) CVA (cerebral vascular accident): Code(s): I63.9 - Cerebral infarction, unspecified Status: Acute Assessment and Plan: MRI shows acute infarct of the middle cerebral artery Plavix added Aspirin and statin Echo EF 65-70% grade 1 diastolic dysfunction Neurology consulted thank you for your help Carotid doppler ultrasound <50% stenosis bilaterally tele monitor PT/OT (2) Seizure: Code(s): R56.9 - Unspecified convulsions Status: Acute Assessment and Plan: Noted yesterday with tremors, resolved with ativan EEG-Mildly abnormal record due to the absence of normal background rhythm but there is no evidence of any paroxysmal activity throughout the tracing and also there is no evidence of any focal slow activity to consider the possibility of focal structural lesion clinical correlation recommended Neurology consulted Keppra 1000mg Q12H Valium for break through seizures seizure precautions PT/OT Fall precautions (3) Diabetes: Code(s): E11.9 - Type 2 diabetes mellitus without complications Status: Acute Assessment and Plan: Current glucose 210 Continue home Lantus 12 units TID, Aspart 12 units TID, metformin 500mg PO BID ISS Accu cheks AC/HS Trend glucose Adjust therapy as indicated Hypoglycemia protocol (4) Involuntary movements: Code(s): R25.9 - Unspecified abnormal involuntary movements Status: Acute Assessment and Plan: Left facial twitching noted Prolactin level ordered to assess for seizure Could be secondary to stroke Valium ordered Neurology consulted DS: Summary Hospital Course Hospital Course: Patient is a 76-year-old female with a past medical history of diabetes, hyperlipidemia who presented to the ED after being [facility] at the [facility]. Concern was patient had a seizure. MRI of the brain showed multifocal infarct and middle cerebral artery. Neurology was consulted and aspirin and statin were continued. Statin was increased to 80 mg q.day. EEG was done and found to have some abnormal background noise. Patient was started on Keppra and dose has been increased to 1000 mg q.12. Echo was performed and showed an EF of 65-70% grade 1 diastolic dysfunction. Carotid Dopplers were performed and showed less than 50% stenosis. Patient had been monitor on tele with no acute events. Glucose has been on trend is currently at 238 . it has been noted over the last couple days the patient has had some involuntary movements especially the left face. It was noted that the patient does talk through the whole thing and does know what is going on. Patient was given Xanax for anxiety to control the involuntary movement which patient stated has helped. It does appear to be a residual effect of the stroke. Patient has been working with PT and OT and has been able to move around with a walker. Currently patient appears stable per labs and vital signs for discharge at this time. Patient is ready to go and is ready for rehab at this time. Patient states that she feels fine has no issues with chest pain, shortness of breath, nausea, vomiting, diarrhea, constipation, weakness or fatigue. Time Spent with Patient Time attestation: Total time spent providing and/or coordinating discharge services: Exam Const: General: cooperative, healthy appearing, no acute distress, well developed, alert and awake Nutritional Appearance: well nourished Orientation/consciousness: patient oriented x3 Limitations: no limitations HENMT: Head: normal to inspection Ears: hearing grossly normal bilaterally General nose exam: Normal external nose present Mouth: Yes Normal oral and palatal mucosa present, Yes lip normal and Yes tongue normal Teeth and gingiva: abn
[2022-06-30] MEDS: amLODIPine BESYLATE 5 MG TABLET PO (09:31)
[2022-06-30] MEDS: PRAVASTATIN SODIUM 20 MG TABLET 80 MG PO (09:32)
[2022-06-30] MEDS: OMEGA 3 POLYUNSAT FATTY ACIDS 1 GM CAP PO (09:32)
[2022-06-30] MEDS: metFORMIN HCL 500 MG TABLET PO ×2 (09:32→17:35)
[2022-06-30] MEDS: ASPIRIN 81 MG CHEWABLE TABLET PO (09:32)
[2022-06-30] MEDS: INSULIN ASPART (*BKC) 100 UNITS/ML SUB-Q ×3 (09:32→17:35)
[2022-06-30] MEDS: CLOPIDOGREL BISULFATE 75 MG TABLET PO (09:32)
[2022-06-30] MEDS: VENLAFAXINE HCL XR 75 MG CAP.ER.24H 150 MG PO (09:32)
[2022-06-30] MEDS: levETIRAcetam 1000MG/NACL100ML 1,000 MG/100 ML BAG 400 MG IVPB ×2 (09:32→20:32)
[2022-06-30] MEDS: ENOXAPARIN 40 MG/0.4 ML SYRINGE SUB-Q (09:32)
[2022-06-30 12:23] LABS: Glucose Point of Care 282 mg/dl (65-105)
[2022-06-30 17:27] LABS: Glucose Point of Care 237 mg/dl (65-105)
[2022-06-30 19:52] LABS: Glucose Point of Care 340 mg/dl (65-105)
[2022-06-30] MEDS: LATANOPROST 0.005% OP SOLN 2.5 ML BTL 1 DROP EACH EYE (20:32)
[2022-06-30] MEDS: INSULIN GLARGINE (*BKC) 100 UNITS/ML 7 UNITS SUB-Q (20:32)
[2022-07-01 05:16] LABS: Hematocrit 38.9 % (37.0-47.0); Hemoglobin 13.3 g/dL (12.0-15.0); Mean Corpuscular HGB Conc 34.2 g/dl (32-36); Mean Corpuscular Hemoglobin 28.7 pg (26-34); Mean Corpuscular Volume 83.8 fl (80-100); Mean Platelet Volume 10.8 fl (7.4-10.4); Platelet Count Result 151 k/mm3 (150-375); Red Blood Count 4.64 M/mm3 (4.2-5.4); Red Cell Distribution Width 12.5 % (11.5-14.5)
[2022-07-01 05:19] LABS: Alanine Aminotransferase 15 U/L (6-35); Albumin Level 3.8 g/dL (3.5-5.1); Alkaline Phosphatase 74 U/L (38-126); Anion Gap 8 mmol/L (8-16); Aspartate Amino Transferase 23 U/L (14-36); Bilirubin,Total 0.6 mg/dL (0.2-1.3); Blood Urea Nitrogen 31 mg/dL (7-17); Calcium 9.6 mg/dL (8.4-10.2); Carbon Dioxide 27 mmol/L (22-30); Chloride 101 mmol/L (98-107); Estimated CRCL calculation 59 ml/min; Estimated Glomerular Filt Rate > 60; Glucose 210 mg/dL (65-110); Sodium 136 mmol/L (137-145)
[2022-07-01 06:00] VITALS: BP 142/66; PULSE 74; RESP 20; TEMP 36.5; O2SAT 98
[2022-07-01 07:33] LABS: Glucose Point of Care 220 mg/dl (65-105)
[2022-07-01 08:58] LABS: Glucose Point of Care 228 mg/dl (65-105)
[2022-07-01 09:11] VITALS: BP 148/78; PULSE 97; RESP 16; O2SAT 100
[2022-07-01] MEDS: levETIRAcetam 1000MG/NACL100ML 1,000 MG/100 ML BAG 400 MG IVPB (09:13)
[2022-07-01] MEDS: CLOPIDOGREL BISULFATE 75 MG TABLET PO (09:13)
[2022-07-01] MEDS: amLODIPine BESYLATE 5 MG TABLET PO (09:13)
[2022-07-01] MEDS: metFORMIN HCL 500 MG TABLET PO (09:13)
[2022-07-01] MEDS: PRAVASTATIN SODIUM 20 MG TABLET 80 MG PO (09:13)
[2022-07-01] MEDS: OMEGA 3 POLYUNSAT FATTY ACIDS 1 GM CAP PO (09:13)
[2022-07-01] MEDS: ASPIRIN 81 MG CHEWABLE TABLET PO (09:13)
[2022-07-01] MEDS: INSULIN ASPART (*BKC) 100 UNITS/ML SUB-Q ×2 (09:14→12:50)
[2022-07-01] MEDS: ENOXAPARIN 40 MG/0.4 ML SYRINGE SUB-Q (09:14)
[2022-07-01] MEDS: VENLAFAXINE HCL XR 75 MG CAP.ER.24H 150 MG PO (09:14)
[2022-07-01 09:47] LABS: EDCOVIDSCREEN Negative (Negative)
[2022-07-01 12:09] LABS: Glucose Point of Care 308 mg/dl (65-105)
[2022-07-01 12:48] LABS: Glucose Point of Care 279 mg/dl (65-105)
[2022-07-02 23:30] LABS: Prolactin 15.2 ng/mL (***)
== END 2022-07-01 14:20 | DRG 66 ==
PROVIDERS: Internal Medicine; Admitting Provider Family Medicine; PCP Family Medicine; Visit Provider Nurse Practitioner
DX: I63.511 Cerebral infarction due to unspecified occlusion or stenosis of right middle cerebral artery (principal); R56.9 Unspecified convulsions; I65.23 Occlusion and stenosis of bilateral carotid arteries; E11.9 Type 2 diabetes mellitus without complications; Z20.822 Contact with and (suspected) exposure to COVID-19; Z87.891 Personal history of nicotine dependence; Z79.4 Long term (current) use of insulin
CPT/HCPCS: 36415; 70470; 70553; 80053; 80061; 82948; 83735; 84146; 84484; 85027; 85055; 87426; 92523; 93005; 93306; 93880; 95816; 96365; 96372; 96375; 96376; 97110; 97116; 97161; 97166; 97530; 97535; A9270; A9577; C9803; G0378; G0379; J1650; J1815; J1953; J2060; J3360; Q9967

== ENCOUNTER 2022-08-27 10:36 | Outpatient (CLI) | payer MEDICARE, SELFPAY ==
--- NOTE | 2022-08-28 13:26 | P.NEURO_ITS ---
Neurology EEG Report General Information Date of Study: 08/28/22 TEST Routine EEG DIAGNOSIS Unspecified convulsions CONDITION OF RECORDING Awake, drowsy, asleep EEG NUMBER [id number] CLINICAL HISTORY Patient reports she had a stroke about 2 months ago that affected her left side. Since then she has had 6 episodes of uncontrollable shaking, mostly on the left side. She denies any loss of consciousness. EEG DESCRIPTION During the awake state with eyes closed the background consists of 8 Hz posterior dominant rhythm which attenuates appropriately with eye opening. The recording is continuous. There is a well developed anterior-posterior gradient. No significant asymmetries of background activities are noted. With drowsiness there is was waxing and waning of the dominant rhythm with eventual replacement by a mixture of alpha and theta activity. As the patient enters stage II sleep, symmetrical spindles and K-complexes are present. Arousal is unremarkable. There are no epileptiform discharges or seizures during this recording. Photic st imulation was performed which did not elicit an abnormal response. IMPRESSION This is a normal routine EEG recorded in awake, drowsy, and asleep states. There are no electrographic seizures identified, nor are there any epileptiform discharges. Please note that a normal EEG cannot exclude a seizure disorder. Clinical correlation is recommended.
== END 2022-08-27 10:37 | disposition home or self-care (01) ==
PROVIDERS: PCP Family Medicine; Visit Provider Psychiatry & Neurology Neurology
DX: R56.9 Unspecified convulsions (principal)
CPT/HCPCS: 95816